=== PATIENT | male | born 2000 | race Two or more races ===

== ENCOUNTER 2019-12-30 09:05 | Emergency (ER) | payer BC ==
[~2019-12-30] VITALS: Ht 190.5 cm; Wt 91.6 kg
[2019-12-30 09:14] VITALS: Ht 190.5 cm; Wt 91.6 kg
[2019-12-30 10:14] VITALS: BP 129/75
[2019-12-30 10:14] LABS: UA SPECIFIC GRAVITY >=1.030 (1.005-1.035); microscopic required? YES; urine erythrocyte 2+ (NEGATIVE)
[2020-01-01 05:10] LABS: RAPID PLASMA REAGIN Non Reactive (Non Reactive)
== END 2019-12-30 10:14 | disposition home or self-care (01) ==
LOC: ED 09:05
PROVIDERS: Emergency Medicine
DX: N39.0 Urinary tract infection, site not specified (principal); Z11.3 Encounter for screening for infections with a predominantly sexual mode of transmission
CPT/HCPCS: 87491; 87591; J0696

== ENCOUNTER 2020-01-10 15:21 | Emergency (ER) | payer BC ==
[~2020-01-10] VITALS: Ht 190.5 cm; Wt 967.5 kg
[2020-01-10 15:34] VITALS: Ht 190.5 cm; Wt 967.5 kg
[2020-01-10 17:10] VITALS: BP 120/71
== END 2020-01-10 17:10 | disposition home or self-care (01) ==
LOC: ED 15:21
DX: A64 Unspecified sexually transmitted disease (principal)
CPT/HCPCS: J0696